=== PATIENT | male | born 1975 | race African-American/Black ===

== ENCOUNTER 2019-06-19 18:32 | Emergency (ER) | payer SELFPAY ==
[~2019-06-19] VITALS: Ht 185.4 cm; Wt 122.9 kg
[2019-06-19 19:23] VITALS: BP 125/59
== END 2019-06-19 21:24 | disposition home or self-care (01) ==
LOC: ER 18:34
DX: G51.0 Bell's palsy (principal); H02.402 Unspecified ptosis of left eyelid
CPT/HCPCS: 70450